=== PATIENT | female | born 1940 | race Caucasian/White ===

== ENCOUNTER 2022-09-22 19:48 | Observation (INO) ==
[2022-09-22] MEDS ORDERED: cefTRIAXone SODIUM 2,000 MG/70 ML BAG IV STA (20:14)
[2022-09-22] MEDS ORDERED: SODIUM CHLORIDE 0.9% 1000ML 1,000 ML IV ONE (20:16)
--- NOTE | 2022-09-22 20:17 | Emergency Department Note ---
Impression & Plan Acute Lyme disease, Sepsis, Elevated troponin ED Provider Note NAME: SHELBIE RONQUILLO AGE: 82 SEX: F : 1940 ARRIVES VIA: Walk-In INFORMANT: Patient ED PROVIDER(S): Kiran Taylor DO CHIEF COMPLAINT: fever HPI: Patient is an 82-year-old female who presents ER for fevers. Fevers have been present since Saturday with a high of 102. She has been getting these persistently and daily. She admits to shaking chills. No headache or change in vision. No chest pain or shortness of breath. No cough, congestion, or runny nose. Admits to an upset stomach and bilateral lower back pain. Denies any dysuria, urgency, or frequency. She was placed on Bactrim by her PCP following giving a urine. She was told today that she did not have a UTI and was sent in. She notes that she did have a little bit of a rash on her left and right arm but that has resolved. No other exacerbating or remitting factors. She admits that she chronically has redness of her right eyelid. PAST MEDICAL HISTORY:See Below PAST SURGICAL HISTORY:See Below FAMILY HISTORY:See Below SOCIAL HISTORY:See Below HOME MEDICATIONS:See Below ALLERGIES:See Below VITALS:See Below PHYSICAL EXAMINATION: GENERAL: Sitting up in bed, alert, well appearing, well nourished, no distress, non-toxic EYE EXAM: normal conjunctiva. Right eyelid with erythema. OROPHARYNX: no exudate, no erythema, lips, buccal mucosa, and tongue normal and mucous membranes are moist NECK: supple, no nuchal rigidity, no adenopathy, non-tender LUNGS: Clear to auscultation. Normal chest wall mechanics HEART: no murmurs, S1 normal and S2 normal ABDOMEN: abdomen soft, non-tender, normo-active bowel sounds, no masses, no rebound or guarding. BACK: Back is symmetrical on inspection and there is no deformity, no midline tenderness, no CVA tenderness. SKIN: Small amount of erythema over the left forearm with small mount of edema. UPPER EXTREMITIES: upper extremities are grossly normal. LOWER EXTREMITIES: No pitting edema. NEURO EXAM: Normal sensorium, cranial nerves II-XII grossly intact, normal speech, no gross weakness of arms, no gross weakness of legs. MEDICAL DECISION MAKING: Patient is an 82-year-old female who presents the ER for fevers for the past 4 to 5 days and associated with shaking chills/rigors. IV was established blood work was obtained. She is found to be borderline febrile and tachycardic. Labs show leukopenia 4.4. No significant anemia. BMP with mild hyponatremia 133. Mild transaminitis at 88 and 102. Troponin was elevated at 56. Pro-Cale was normal. UA was clean. Lyme IgG and IgM are positive. Patient was given 2 g of Rocephin. Updated bedside. Given IV fluids. Discussed with hospitalist admitted for further work-up. Triage Nursing notes reviewed. Limited review of prior medical records performed Vital Signs: reviewed and remarkable for tachy, htn Differential diagnosis: Differential diagnosis includes etiologies such as sepsis, UTI, pneumonia, metabolic, electrolyte abnormalities, cardiac sources, intracerebral event, toxicologic, neurological, as well as others were entertained. ER treatment provided: See below Diagnostics interpreted by me include EKG and cardiac monitoring as listed below: -Cardiac Monitoring: An order was placed for continuous cardiac monitoring. The monitor shows a rate of 101 with sinus rhythm. -ECG: Sinus rhythm rate 84 Left axis No PVCs QTc 439 -Laboratory studies:Interpreted by me as stated above in MDM and shown below. Imaging studies: Xrays: As interpreted by me: Portable AP upright 1 view the chest shows no pneumonia CTs show: CT abdomen pelvis showed no obvious obstruction per my read CT abdomen pelvis per radiology was unremarkable Consultation(s): Discussed with Dr. Aristides Fernandez for further evaluation management and treatment Procedures:none Critical Care: None Past Med/Surg History Social History Smoking Status: Never smoker Preferred Language: Peruvian Feels Safe at Home: Yes Allergies Allergies Allergy/AdvReac Type Severity Reaction Status Date / Time ampicillin Allergy Unknown Verified 09/22/22 21:55 celecoxib [From Celebrex] Allergy Unknown Verified 09/22/22 21:53 clindamycin Allergy Unknown Verified 09/22/22 21:56 erythromycin base Allergy Unknown Verified 09/22/22 21:55 Iodinated Contrast Media Allergy Anaphylaxis Verified 09/22/22 21:51 rofecoxib [From Vioxx] Allergy Unknown Verified 09/22/22 21:52 shellfish derived Allergy Anaphylaxis Verified 09/22/22 21:50 wine spirit Allergy Unknown Verified 09/22/22 21:52 epinephrine AdvReac ' WHOLE Verified 09/22/22 21:54 BODY QUIVERS' Home Meds Home Medications Medication Instructions Recorded Confirmed albuterol sulfate 90 mcg/actuation 2 puff inhalation Q6H PRN 09/22/22 09/22/22 aerosol inhaler Shortness Of Breath Or Wheezing aspirin 81 mg tablet,delayed 81 mg PO DAILY 09/22/22 09/22/22 release bimatoprost 0.01 % eye drops 1 drp OPR DAILY 09/22/22 09/22/22 (Lumigan) brimonidine 0.2 % eye drops 1 drp OPR BID 09/22/22 09/22/22 calcium carbonate 600 mg-vitamin 1 tab PO BID 09/22/22 09/22/22 D3 10 mcg (400 unit) tablet (Calcium 600 + D(3)) dorzolamide 2 % eye drops 1 drp OPR DIRECTED 09/22/22 09/22/22 simvastatin 20 mg tablet 20 mg PO DAILY 09/22/22 09/22/22 Results & Data (ED) Vital Signs Vital Signs - 24 hr 09/22/22 19:59 09/22/22 20:35 09/22/22 20:35 Temperature 37.6 C H 37.6 C H Temperature Source Oral Oral Pulse Rate 101 H 79 Pulse Rate [Right Finger] 84 Pulse Rate from SpO2 Sensor Pulse Rhythm Pulse Rhythm [Right Finger] Regular Pulse Strength [Right Finger] Normal Respiratory Rate 18 16 Respiratory Effort / Characteristics Non-Labored Spontaneous Non-Labored Spontaneous Respiratory Depth Normal Normal Respiratory Pattern Regular Regular Blood Pressure 169/83 H Blood Pressure [Right Arm] 123/66 Blood Pressure Mean 111 Blood Pressure Mean [Right Arm] 85 Blood Pressure Position [Right Arm] Lying Pulse Oximetry 97 98 Oxygen Delivery Method Room Air Room Air Sepsis Recent Fever Within 48 Hours Yes Sepsis New/Unexplained Change in Mental Status No Sepsis Action Taken by Nursing No Action Required 09/22/22 20:35 09/22/22 20:34 09/22/22 20:35 Temperature Temperature Source Pulse Rate 84 79 Pulse Rate [Right Finger] Pulse Rate from SpO2 Sensor 79 Pulse Rhythm Regular Pulse Rhythm [Right Finger] Pulse Strength [Right Finger] Respiratory Rate 16 12 Respiratory Effort / Characteristics Respiratory Depth Respiratory Pattern Blood Pressure 123/66 Blood Pressure [Right Arm] Blood Pressure Mean 89 Blood Pressure Mean [Right Arm] Blood Pressure Position [Right Arm] Pulse Oximetry 98 96 Oxygen Delivery Method Room Air Sepsis Recent Fever Within 48 Hours Sepsis New/Unexplained Change in Mental Status Sepsis Action Taken by Nursing 09/22/22 20:40 09/22/22 20:50 09/22/22 21:00 Temperature Temperature Source Pulse Rate 79 78 Pulse Rate [Right Finger] Pulse Rate from SpO2 Sensor 78 78 Pulse Rhythm Pulse Rhythm [Right Finger] Pulse Strength [Right Finger] Respiratory Rate 18 19 Respiratory Effort / Characteristics Respiratory Depth Respiratory Pattern Blood Pressure 131/69 Blood Pressure [Right Arm] Blood Pressure Mean 75 Blood Pressure Mean [Right Arm] Blood Pressure Position [Right Arm] Pulse Oximetry 97 97 Oxygen Delivery Method Sepsis Recent Fever Within 48 Hours Sepsis New/Unexplained Change in Mental Status Sepsis Action Taken by Nursing 09/22/22 21:00 09/22/22 21:10 09/22/22 21:20 Temperature Temperature Source Pulse Rate 75 79 75 Pulse Rate [Right Finger] Pulse Rate from SpO2 Sensor 72 80 75 Pulse Rhythm Pulse Rhythm [Right Finger] Pulse Strength [Right Finger] Respiratory Rate 17 17 17 Respiratory Effort / Characteristics Respiratory Depth Respiratory Pattern Blood Pressure Blood Pressure [Right Arm] Blood Pressure Mean Blood Pressure Mean [Right Arm] Blood Pressure Position [Right Arm] Pulse Oximetry 97 97 97 Oxygen Delivery Method Sepsis Recent Fever Within 48 Hours Sepsis New/Unexplained Change in Mental Status Sepsis Action Taken by Nursing 09/22/22 21:30 09/22/22 21:30 09/22/22 21:40 Temperature Temperature Source Pulse Rate 79 77 Pulse Rate [Right Finger] Pulse Rate from SpO2 Sensor 78 76 Pulse Rhythm Pulse Rhythm [Right Finger] Pulse Strength [Right Finger] Respiratory Rate 20 23 Respiratory Effort / Characteristics Respiratory Depth Respiratory Pattern Blood Pressure 148/105 H Blood Pressure [Right Arm] Blood Pressure Mean 111 Blood Pressure Mean [Right Arm] Blood Pressure Position [Right Arm] Pulse Oximetry 98 99 Oxygen Delivery Method Sepsis Recent Fever Within 48 Hours Sepsis New/Unexplained Change in Mental Status Sepsis Action Taken by Nursing 09/22/22 21:55 09/22/22 22:00 09/22/22 22:10 Temperature Temperature Source Pulse Rate 80 77 83 Pulse Rate [Right Finger] Pulse Rate from SpO2 Sensor Pulse Rhythm Pulse Rhythm [Right Finger] Pulse Strength [Right Finger] Respiratory Rate 17 17 15 Respiratory Effort / Characteristics Respiratory Depth Respiratory Pattern Blood Pressure Blood Pressure [Right Arm] Blood Pressure Mean Blood Pressure Mean [Right Arm] Blood Pressure Position [Right Arm] Pulse Oximetry Oxygen Delivery Method Sepsis Recent Fever Within 48 Hours Sepsis New/Unexplained Change in Mental Status Sepsis Action Taken by Nursing 09/22/22 22:20 09/22/22 22:30 09/22/22 22:30 Temperature Temperature Source Pulse Rate 83 81 Pulse Rate [Right Finger] Pulse Rate from SpO2 Sensor 83 81 Pulse Rhythm Pulse Rhythm [Right Finger] Pulse Strength [Right Finger] Respiratory Rate 19 18 Respiratory Effort / Characteristics Respiratory Depth Respiratory Pattern Blood Pressure 134/75 Blood Pressure [Right Arm] Blood Pressure Mean 116 Blood Pressure Mean [Right Arm] Blood Pressure Position [Right Arm] Pulse Oximetry 98 98 Oxygen Delivery Method Sepsis Recent Fever Within 48 Hours Sepsis New/Unexplained Change in Mental Status Sepsis Action Taken by Nursing 09/22/22 22:40 09/22/22 22:50 09/22/22 23:00 Temperature Temperature Source Pulse Rate 81 83 Pulse Rate [Right Finger] Pulse Rate from SpO2 Sensor 81 84 Pulse Rhythm Pulse Rhythm [Right Finger] Pulse Strength [Right Finger] Respiratory Rate 12 23 Respiratory Effort / Characteristics Respiratory Depth Respiratory Pattern Blood Pressure 148/110 H Blood Pressure [Right Arm] Blood Pressure Mean 124 Blood Pressure Mean [Right Arm] Blood Pressure Position [Right Arm] Pulse Oximetry 98 98 Oxygen Delivery Method Sepsis Recent Fever Within 48 Hours Sepsis New/Unexplained Change in Mental Status Sepsis Action Taken by Nursing 09/22/22 23:00 09/22/22 23:10 09/22/22 23:22 Temperature Temperature Source Pulse Rate 86 82 87 Pulse Rate [Right Finger] Pulse Rate from SpO2 Sensor 86 82 86 Pulse Rhythm Pulse Rhythm [Right Finger] Pulse Strength [Right Finger] Respiratory Rate 17 14 20 Respiratory Effort / Characteristics Respiratory Depth Respiratory Pattern Blood Pressure Blood Pressure [Right Arm] Blood Pressure Mean Blood Pressure Mean [Right Arm] Blood Pressure Position [Right Arm] Pulse Oximetry 97 96 98 Oxygen Delivery Method Sepsis Recent Fever Within 48 Hours Sepsis New/Unexplained Change in Mental Status Sepsis Action Taken by Nursing Laboratory Data 09/22/22 20:45 09/22/22 20:45 Lab Results 09/22/22 09/22/22 09/22/22 Range/Units 20:45 20:45 20:45 WBC 4.49 L (4.8-10.8) K/ul RBC 3.96 L (4.20-5.40) M/uL Hgb 12.2 (12.0-16.0) g/dl POC Hgb (12.0-16.0) g/dl Hct 34.5 L (37.0-47.0) % POC Hct (37-47) % MCV 87.1 (80.0-100.0) fL MCH 30.8 (25.0-34.0) pg MCHC 35.4 (32.0-36.0) g/dL RDW Std Deviation 40.2 (36.4-46.3) fL RDW Coeff of Kieran 12.6 (11.5-14.5) % Plt Count 151 (130-400) K/uL MPV 9.8 (9.4-12.4) fL Immature Gran % (Auto) 0.4 % Neut % (Auto) 59.7 % Lymph % (Auto) 25.2 % [place] % (Auto) 14.3 % Eos % (Auto) 0.2 % Baso % (Auto) 0.2 % Neut # (Auto) 2.68 (1.40-6.50) K/uL Lymph # (Auto) 1.13 L (1.2-3.4) K/uL [place] # (Auto) 0.64 H (0.11-0.59) K/uL Eos # (Auto) 0.01 (0-0.50) K/uL Baso # (Auto) 0.01 (0-0.2) K/uL Immature Gran # (Auto) 0.02 (0.01-0.20) K/uL PT 10.9 (9.0-12.0) Seconds INR 1.0 (0.9-1.1) APTT (21.0-31.0) Seconds PTT Ratio POC Sodium (135-144) mmol/L Sodium 133 L (136-145) mmol/L POC Potassium (3.3-5.0) mmol/L Potassium 3.5 (3.5-5.1) mmol/L POC Chloride (101-112) mmol/L Chloride 104 (98-107) mmol/L Carbon Dioxide 22 (21-32) mmol/L POC Total CO2 (24-31) mmol/L Anion Gap 7 (3-11) POC Anion Gap (16-25) mmol/L POC BUN (7-18) mg/dl BUN 8 (6-23) mg/dl Creatinine 0.60 (0.6-1.2) mg/dl POC Creatinine (0.6-1.3) mg/dl Est Cr Clr Drug Dosing Not Reportable Est GFR ( Amer) 97.0 ml/min Est GFR (Non-Af Amer) 83.7 ml/min BUN/Creatinine Ratio 13.3 (10-20) Glucose 105 H (70-99(Fasting)) mg/dl POC Glucose (other) (70-99) mg/dl Lactate (0.4-2.0) mmol/L Calcium 8.8 (8.6-10.3) mg/dl POC Ioniz Calcium Karishma (1.12-1.32) mmol/l Magnesium 2.1 (1.7-2.4) mg/dl Total Bilirubin 0.5 (0.2-1.0) mg/dl Direct Bilirubin 0.1 (0-0.2) mg/dl AST 88 H (13-39) U/L ALT 102 H (7-52) U/L Alkaline Phosphatase 133 H (34-104) U/L Troponin I High Sens 56.5 H* (0-14) pg/ml Total Protein 6.6 (6.0-8.3) gm/dl Albumin 3.8 (3.4-5.0) gm/dl Procalcitonin (0-0.5) ng/ml Urine Color Urine Appearance (Clear) Urine pH (4.5-7.5) Ur Specific Sawyer (1.000-1.030) Urine Protein (Negative) Urine Glucose (UA) (Negative) Urine Ketones (Negative) Urine Blood (Negative) Urine Nitrite (Negative) Urine Bilirubin (Negative) Urine Urobilinogen (Negative) Ur Leukocyte Esterase (Negative) Urine WBC (Auto) (0-5) /hpf Urine RBC (Auto) (0-4) /hpf U Hyaline Cast (Auto) (0-5) /lpf U Epithel Cells (Auto) (0-5) /lpf Urine Bacteria (Auto) (Negative) Lyme Disease IgG Ab (Negative) Lyme Disease IgM Ab (Negative) SARS-CoV-2 (PCR) (Negative) Influenza Type A (PCR) (Neg) Influenza Type B (PCR) (Neg) RSV (RT-PCR) (Neg) 09/22/22 09/22/22 09/22/22 Range/Units 20:45 20:45 20:45 WBC (4.8-10.8) K/ul RBC (4.20-5.40) M/uL Hgb (12.0-16.0) g/dl POC Hgb (12.0-16.0) g/dl Hct (37.0-47.0) % POC Hct (37-47) % MCV (80.0-100.0) fL MCH (25.0-34.0) pg MCHC (32.0-36.0) g/dL RDW Std Deviation (36.4-46.3) fL RDW Coeff of Kieran (11.5-14.5) % Plt Count (130-400) K/uL MPV (9.4-12.4) fL Immature Gran % (Auto) % Neut % (Auto) % Lymph % (Auto) % [place] % (Auto) % Eos % (Auto) % Baso % (Auto) % Neut # (Auto) (1.40-6.50) K/uL Lymph # (Auto) (1.2-3.4) K/uL [place] # (Auto) (0.11-0.59) K/uL Eos # (Auto) (0-0.50) K/uL Baso # (Auto) (0-0.2) K/uL Immature Gran # (Auto) (0.01-0.20) K/uL PT (9.0-12.0) Seconds INR (0.9-1.1) APTT (21.0-31.0) Seconds PTT Ratio POC Sodium (135-144) mmol/L Sodium (136-145) mmol/L POC Potassium (3.3-5.0) mmol/L Potassium (3.5-5.1) mmol/L POC Chloride (101-112) mmol/L Chloride (98-107) mmol/L Carbon Dioxide (21-32) mmol/L POC Total CO2 (24-31) mmol/L Anion Gap (3-11) POC Anion Gap (16-25) mmol/L POC BUN (7-18) mg/dl BUN (6-23) mg/dl Creatinine (0.6-1.2) mg/dl POC Creatinine (0.6-1.3) mg/dl Est Cr Clr Drug Dosing Est GFR ( Amer) ml/min Est GFR (Non-Af Amer) ml/min BUN/Creatinine Ratio (10-20) Glucose (70-99(Fasting)) mg/dl POC Glucose (other) (70-99) mg/dl Lactate 0.8 (0.4-2.0) mmol/L Calcium (8.6-10.3) mg/dl POC Ioniz Calcium Karishma (1.12-1.32) mmol/l Magnesium (1.7-2.4) mg/dl Total Bilirubin (0.2-1.0) mg/dl Direct Bilirubin (0-0.2) mg/dl AST (13-39) U/L ALT (7-52) U/L Alkaline Phosphatase (34-104) U/L Troponin I High Sens (0-14) pg/ml Total Protein (6.0-8.3) gm/dl Albumin (3.4-5.0) gm/dl Procalcitonin 0.30 (0-0.5) ng/ml Urine Color Yellow Urine Appearance Clear (Clear) Urine pH 7.5 (4.5-7.5) Ur Specific Sawyer 1.007 (1.000-1.030) Urine Protein Negative (Negative) Urine Glucose (UA) Negative (Negative) Urine Ketones Negative (Negative) Urine Blood Trace H (Negative) Urine Nitrite Negative (Negative) Urine Bilirubin Negative (Negative) Urine Urobilinogen Negative (Negative) Ur Leukocyte Esterase Negative (Negative) Urine WBC (Auto) 0 (0-5) /hpf Urine RBC (Auto) 0-4 (0-4) /hpf U Hyaline Cast (Auto) 0 (0-5) /lpf U Epithel Cells (Auto) 5-10 H (0-5) /lpf Urine Bacteria (Auto) Negative (Negative) Lyme Disease IgG Ab Positive A (Negative) Lyme Disease IgM Ab Positive A (Negative) SARS-CoV-2 (PCR) (Negative) Influenza Type A (PCR) (Neg) Influenza Type B (PCR) (Neg) RSV (RT-PCR) (Neg) 09/22/22 09/22/22 09/22/22 Range/Units 20:53 20:57 21:10 WBC (4.8-10.8) K/ul RBC (4.20-5.40) M/uL Hgb (12.0-16.0) g/dl POC Hgb 12.2 (12.0-16.0) g/dl Hct (37.0-47.0) % POC Hct 36 L (37-47) % MCV (80.0-100.0) fL MCH (25.0-34.0) pg MCHC (32.0-36.0) g/dL RDW Std Deviation (36.4-46.3) fL RDW Coeff of Kieran (11.5-14.5) % Plt Count (130-400) K/uL MPV (9.4-12.4) fL Immature Gran % (Auto) % Neut % (Auto) % Lymph % (Auto) % [place] % (Auto) % Eos % (Auto) % Baso % (Auto) % Neut # (Auto) (1.40-6.50) K/uL Lymph # (Auto) (1.2-3.4) K/uL [place] # (Auto) (0.11-0.59) K/uL Eos # (Auto) (0-0.50) K/uL Baso # (Auto) (0-0.2) K/uL Immature Gran # (Auto) (0.01-0.20) K/uL PT (9.0-12.0) Seconds INR (0.9-1.1) APTT 29.0 (21.0-31.0) Seconds PTT Ratio 1.0 POC Sodium 134 L (135-144) mmol/L Sodium (136-145) mmol/L POC Potassium 3.5 (3.3-5.0) mmol/L Potassium (3.5-5.1) mmol/L POC Chloride 103 (101-112) mmol/L Chloride (98-107) mmol/L Carbon Dioxide (21-32) mmol/L POC Total CO2 19 L (24-31) mmol/L Anion Gap (3-11) POC Anion Gap 16.0 (16-25) mmol/L POC BUN 6 L (7-18) mg/dl BUN (6-23) mg/dl Creatinine (0.6-1.2) mg/dl POC Creatinine 0.6 (0.6-1.3) mg/dl Est Cr Clr Drug Dosing Est GFR ( Amer) ml/min Est GFR (Non-Af Amer) ml/min BUN/Creatinine Ratio (10-20) Glucose (70-99(Fasting)) mg/dl POC Glucose (other) 108 H (70-99) mg/dl Lactate (0.4-2.0) mmol/L Calcium (8.6-10.3) mg/dl POC Ioniz Calcium Karishma 1.18 (1.12-1.32) mmol/l Magnesium (1.7-2.4) mg/dl Total Bilirubin (0.2-1.0) mg/dl Direct Bilirubin (0-0.2) mg/dl AST (13-39) U/L ALT (7-52) U/L Alkaline Phosphatase (34-104) U/L Troponin I High Sens (0-14) pg/ml Total Protein (6.0-8.3) gm/dl Albumin (3.4-5.0) gm/dl Procalcitonin (0-0.5) ng/ml Urine Color Urine Appearance (Clear) Urine pH (4.5-7.5) Ur Specific Sawyer (1.000-1.030) Urine Protein (Negative) Urine Glucose (UA) (Negative) Urine Ketones (Negative) Urine Blood (Negative) Urine Nitrite (Negative) Urine Bilirubin (Negative) Urine Urobilinogen (Negative) Ur Leukocyte Esterase (Negative) Urine WBC (Auto) (0-5) /hpf Urine RBC (Auto) (0-4) /hpf U Hyaline Cast (Auto) (0-5) /lpf U Epithel Cells (Auto) (0-5) /lpf Urine Bacteria (Auto) (Negative) Lyme Disease IgG Ab (Negative) Lyme Disease IgM Ab (Negative) SARS-CoV-2 (PCR) NEGATIVE (Negative) Influenza Type A (PCR) Negative (Neg) Influenza Type B (PCR) Negative (Neg) RSV (RT-PCR) Negative (Neg) Administered Medications Doxycycline Hyclate 100 mg/ (Dextrose) 110 mls @ 50 mls/hr IV NOW STA Stop: 09/23/22 01:06 Last Admin: 09/22/22 23:25 Dose: 50 mls/hr Documented By: CURYL Sodium Chloride (Nss 1000ml) 1,000 mls @ 75 mls/hr IV .[id number] STA Stop: 09/23/22 12:17 Last Admin: 09/22/22 23:25 Dose: 75 mls/hr Documented By: CURLY Discontinued Medications Acetaminophen (Acetaminophen 325 Mg Tab) 650 mg PO NOW STA Stop: 09/22/22 22:57 Last Admin: 09/22/22 23:24 Dose: 650 mg Documented By: CURLY Ceftriaxone Sodium (Rocephin) 2,000 mg in 70 mls @ 140 mls/hr IV NOW STA Stop: 09/22/22 20:43 Last Infusion: 09/22/22 21:45 Dose: 0 mls/hr Documented By: AUTOMOTIVE GENERAL MANAGER Admin: 09/22/22 21:15 Dose: 140 mls/hr Documented By: AUTOMOTIVE GENERAL MANAGER Sodium Chloride (Nss 1000ml) 1,000 mls @ 999 mls/hr IV .[id number] ONE Stop: 09/22/22 21:16 Last Infusion: 09/22/22 23:40 Dose: 0 mls/hr Documented By: Admin: 09/22/22 21:16 Dose: 999 mls/hr Documented By: ALEXIS Imaging Data Radiologist's Impression: Abdomen/Pelvis CT 09/22/22 20:14 Exam(s): CT ABDOMEN + PELVIS Without Contrast EXAM: CT Abdomen and Pelvis Without Intravenous Contrast CLINICAL HISTORY: Reason for exam: sepsis w/ back pain. TECHNIQUE: Axial computed tomography images of the abdomen and pelvis without intravenous contrast. Automated exposure control was utilized for the study. A dose lowering technique was utilized adhering to the principles of ALARA. COMPARISON: No relevant prior studies available. FINDINGS: Lung bases: Clear lung bases. Heart: Small pericardial effusion. ABDOMEN: Liver: Unremarkable. Gallbladder and bile ducts: Cholelithiasis without cholecystitis or biliary dilatation. Pancreas: Unremarkable. No ductal dilation. Spleen: Unremarkable. No splenomegaly. Adrenals: Small calcification right adrenal gland, post-inflammatory or post-hemorrhagic. Left adrenal gland is normal. Kidneys and ureters: Unremarkable. No hydronephrosis. No radiopaque stones. Stomach and bowel: No bowel obstruction. Sigmoid diverticulosis without diverticulitis. PELVIS: Appendix: Normal appendix. Bladder: Unremarkable. No stones. Reproductive: Unremarkable as visualized. ABDOMEN and PELVIS: Intraperitoneal space: Trace free pelvic fluid. No free air. Bones/joints: Osteopenia. Degenerative changes in the lumbar spine. No acute fracture or dislocation. Soft tissues: Unremarkable. Vasculature: Minor atherosclerosis. No aortic aneurysm. Lymph nodes: Unremarkable. No adenopathy. IMPRESSION: No acute findings in the abdomen or pelvis. Electronically signed by: Rodríguez Jennings M.D. 09/23/22 00:00 AM Discharge Plan Visit Data Chief Complaint: Illness Stated Complaint: HIVES, BLOATING, BACK PAIN ED Provider: Kiran Taylor Discharge Problem: Acute Lyme disease, Sepsis, Elevated troponin Forms Stand Alone Forms: My [facility] [place] [employer] Prescriptions Prescriptions: No Action calcium carbonate-vitamin D3 [Calcium 600 + D(3)] 600 mg-10 mcg (400 unit) Tablet 1 tab PO BID aspirin [Aspir-Low] 81 mg Tablet,Delayed Release (Dr/Ec) 81 mg PO DAILY simvastatin 20 mg Tablet 20 mg PO DAILY brimonidine [Alphagan] 0.2 % Drops 1 drp OPR BID Lumigan 0.01 % Drops 1 drp OPR DAILY dorzolamide 2 % Drops 1 drp OPR DIRECTED albuterol sulfate 90 mcg/actuation Hfa Aerosol Inhaler 2 puff INHALATION Q6H PRN (Reason: Shortness Of Breath Or Wheezing) Referrals Referrals: PCP,NO [Physician] -
[2022-09-22 21:06] LABS: iSTAT Creatinine 0.6 mg/dl (0.6-1.3); iSTAT Hemoglobin 12.2 g/dl (12.0-16.0); iSTAT Ionized Calcium 1.18 mmol/l (1.12-1.32); iSTAT Potassium 3.5 mmol/L (3.3-5.0)
[2022-09-22 21:12] LABS: Appearance Urine Clear (Clear); Bacteria Urine Automated Negative (Negative); Bilirubin Urine Negative (Negative); Blood Urine Trace (Negative); Cast Urine Automated 0 /lpf (0-5); Color Urine Yellow; Glucose Urine UA Negative (Negative); Ketones Urine Negative (Negative); Leukocyte Esterase Urine Negative (Negative); Nitrite Urine Negative (Negative); Protein Urine Negative (Negative); RBC Urine Automated 0-4 /hpf (0-4); Specific Gravity Urine 1.007 (1.000-1.030); Urobilinogen Urine Negative (Negative); WBC Urine Automated 0 /hpf (0-5); pH Urine 7.5 (4.5-7.5)
[2022-09-22 21:20] LABS: Basophils # (auto) 0.01 K/uL (0-0.2); Basophils % (auto) 0.2 %; Eosinophils # (auto) 0.01 K/uL (0-0.50); Eosinophils % (auto) 0.2 %; Hematocrit (blood only) 34.5 % (37.0-47.0); Hemoglobin 12.2 g/dl (12.0-16.0); Immature Granulocytes # (auto) 0.02 K/uL (0.01-0.20); Immature Granulocytes % (auto) 0.4 %; Lymphocytes # (auto) 1.13 K/uL (1.2-3.4); Lymphocytes % (auto) 25.2 %; Mean Corpuscular Hemoglobin 30.8 pg (25.0-34.0); Mean Corpuscular Hgb Conc 35.4 g/dL (32.0-36.0); Mean Corpuscular Volume 87.1 fL (80.0-100.0); Mean Platelet Volume 9.8 fL (9.4-12.4); Monocytes # (auto) 0.64 K/uL (0.11-0.59); Monocytes % (auto) 14.3 %; Neutrophils # (auto) 2.68 K/uL (1.40-6.50); Neutrophils % (auto) 59.7 %; Platelet Count 151 K/uL (130-400); RDW Coefficient of Variation 12.6 % (11.5-14.5); RDW Standard Deviation 40.2 fL (36.4-46.3); Red Blood Count 3.96 M/uL (4.20-5.40); White Blood Count 4.49 K/ul (4.8-10.8)
[2022-09-22 21:25] LABS: Alanine Aminotransferase 102 U/L (7-52); Albumin Level 3.8 gm/dl (3.4-5.0); Alkaline Phosphatase 133 U/L (34-104); Anion Gap 7 (3-11); Aspartate Aminotransferase 88 U/L (13-39); BUN Creatinine Ratio 13.3 (10-20); Bilirubin Direct 0.1 mg/dl (0-0.2); Bilirubin,Total 0.5 mg/dl (0.2-1.0); Blood Urea Nitrogen 8 mg/dl (6-23); Calcium 8.8 mg/dl (8.6-10.3); Carbon Dioxide 22 mmol/L (21-32); Chloride 104 mmol/L (98-107); Est GFR (Non-African American) 83.7 ml/min; Glucose 105 mg/dl (70-99(Fasting)); Magnesium 2.1 mg/dl (1.7-2.4); Potassium 3.5 mmol/L (3.5-5.1); Sodium 133 mmol/L (136-145); Total Protein 6.6 gm/dl (6.0-8.3)
[2022-09-22 21:33] LABS: Prothrombin Time 10.9 Seconds (9.0-12.0)
[2022-09-22 21:43] LABS: Troponin I High Sensitivity 56.5 pg/ml (0-14)
[2022-09-22 21:49] LABS: Influenza A virus by PCR Negative (Neg); Influenza B virus by PCR Negative (Neg); RSV by PCR Negative (Neg); SARS CoV2 RNA(COVID-19) Ceph NEGATIVE (Negative)
[2022-09-22 22:30] LABS: Lyme Ab IgG w/WB Rflx Positive (Negative); Lyme Ab IgM w/WB Rflx Positive (Negative)
[2022-09-22] MEDS ORDERED: DOXYCYCLINE HYCLATE 100 MG in DEXTROSE 5% 100 ML IV STA (22:55)
[2022-09-22] MEDS ORDERED: ACETAMINOPHEN 325 MG TAB PO STA (22:56)
[2022-09-22] MEDS ORDERED: SODIUM CHLORIDE 0.9% 1000ML 1,000 ML IV STA (22:58)
--- NOTE | 2022-09-23 | CT Scan Report ---
Exam(s): CT ABDOMEN + PELVIS Without Contrast EXAM: CT Abdomen and Pelvis Without Intravenous Contrast CLINICAL HISTORY: Reason for exam: sepsis w/ back pain. TECHNIQUE: Axial computed tomography images of the abdomen and pelvis without intravenous contrast. Automated exposure control was utilized for the study. A dose lowering technique was utilized adhering to the principles of ALARA. COMPARISON: No relevant prior studies available. FINDINGS: Lung bases: Clear lung bases. Heart: Small pericardial effusion. ABDOMEN: Liver: Unremarkable. Gallbladder and bile ducts: Cholelithiasis without cholecystitis or biliary dilatation. Pancreas: Unremarkable. No ductal dilation. Spleen: Unremarkable. No splenomegaly. Adrenals: Small calcification right adrenal gland, post-inflammatory or post-hemorrhagic. Left adrenal gland is normal. Kidneys and ureters: Unremarkable. No hydronephrosis. No radiopaque stones. Stomach and bowel: No bowel obstruction. Sigmoid diverticulosis without diverticulitis. PELVIS: Appendix: Normal appendix. Bladder: Unremarkable. No stones. Reproductive: Unremarkable as visualized. ABDOMEN and PELVIS: Intraperitoneal space: Trace free pelvic fluid. No free air. Bones/joints: Osteopenia. Degenerative changes in the lumbar spine. No acute fracture or dislocation. Soft tissues: Unremarkable. Vasculature: Minor atherosclerosis. No aortic aneurysm. Lymph nodes: Unremarkable. No adenopathy. IMPRESSION: No acute findings in the abdomen or pelvis. Electronically signed by: Rodríguez Jennings M.D. 09/23/22 00:00 AM
--- NOTE | 2022-09-23 00:05 | History & Physical Report ---
Date of Service September 23, 2022 Assessment & Plan (1) Sepsis: Plan: Secondary to tickborne infection Abnormal LFTs secondary to above Hypertensive urgency secondary to illness Troponin elevation secondary to above hyperlipidemia, on statin Rx Medical telemetry CS, Doxycycline Follow troponin, TTE for progression DVT prophylaxis per Lovenox subcu Full code Text document was generated using [employer] voice recognition software. It may contain grammatical or spelling errors. Kindly contact undersigned for clarification of any documentation item in question. History of Present Illness Chief Complaint: Fever, chills Primary Care Provider: Tyler Walton History obtained from patient and records. Medical history significant for hyperlipidemia, glaucoma. 3 days history of fever, chills, generalized weakness. Upset stomach without diarrhea symptoms. No chest pain, no SOB, no cough symptoms. Possible tick exposure due to residence although patient has no recollection of recent tick bites. Patient seen at PCPs office. Patient started on Bactrim for possible UTI. No improvement despite first doses of antibiotic. Patient brought to ER by . IV ceftriaxone administered at the ER for possible tickborne infection. Initial SBP noted to be 160s. Medical History as above Surgical History : Carpal tunnel surgery Family History : Heart disease Personal/Social history : Non-smoker, no EtOH intake, lives with Allergies Allergy/AdvReac Type Severity Reaction Status Date / Time ampicillin Allergy Unknown Verified 09/22/22 21:55 celecoxib [From Celebrex] Allergy Unknown Verified 09/22/22 21:53 clindamycin Allergy Unknown Verified 09/22/22 21:56 erythromycin base Allergy Unknown Verified 09/22/22 21:55 Iodinated Contrast Media Allergy Anaphylaxis Verified 09/22/22 21:51 rofecoxib [From Vioxx] Allergy Unknown Verified 09/22/22 21:52 shellfish derived Allergy Anaphylaxis Verified 09/22/22 21:50 wine spirit Allergy Unknown Verified 09/22/22 21:52 epinephrine AdvReac ' WHOLE Verified 09/22/22 21:54 BODY [facility]ERS' Home Medications Medication Instructions Recorded Confirmed Type albuterol sulfate 90 mcg/actuation 2 puff inhalation Q6H PRN 09/22/22 09/22/22 History aerosol inhaler Shortness Of Breath Or Wheezing aspirin 81 mg tablet,delayed 81 mg PO DAILY 09/22/22 09/22/22 History release bimatoprost 0.01 % eye drops 1 drp OPR DAILY 09/22/22 09/22/22 History (Lumigan) brimonidine 0.2 % eye drops 1 drp OPR BID 09/22/22 09/22/22 History calcium carbonate 600 mg-vitamin 1 tab PO BID 09/22/22 09/22/22 History D3 10 mcg (400 unit) tablet (Calcium 600 + D(3)) dorzolamide 2 % eye drops 1 drp OPR DIRECTED 09/22/22 09/22/22 History simvastatin 20 mg tablet 20 mg PO DAILY 09/22/22 09/22/22 History Past Med/Surg History Social History Smoking Status: Never smoker Second Hand Exposure: No; Hx Alcohol Use: Yes Alcohol type: beer Hx Substance Use: No Preferred Language: Croatian Communication Ability: Effective Gift Shop Clerk Required: No Beliefs That Will Affect Care: None Current Living Situation: Spouse Feels Safe at Home: Yes Review of Systems Review of Systems: As per HPI, all other systems reviewed and negative Physical Exam Physical Exam: GENERAL: Comfortable, pleasant, looks younger than stated age, no respiratory distress SKIN: Normal color, warm HEENT: [place] palpebral conjunctivae, chronic right ptosis chronic right upper lid erythema, dry buccal mucosa NECK : Supple, no tenderness CHEST : CTA, no tenderness HEART : RRR, no obvious murmurs ABDOMEN: Some distention, nontender EXTREMITIES : No LE swelling/tenderness, no other conspicuous deformities noted NEUROLOGIC : Coherent, no facial asymmetry, no other gross focality Results & Data Results & Data Vital Signs (Past 12 Hours) Vital Signs Temp Pulse Pulse Resp BP BP Pulse Ox 09/22/22 23:22 87 20 98 09/22/22 23:10 82 14 96 09/22/22 23:00 86 17 97 09/22/22 23:00 148/110 H 09/22/22 22:50 83 23 98 09/22/22 22:40 81 12 98 09/22/22 22:30 81 18 98 09/22/22 22:30 134/75 09/22/22 22:20 83 19 98 09/22/22 22:10 83 15 09/22/22 22:00 77 17 09/22/22 21:55 80 17 09/22/22 21:40 77 23 99 09/22/22 21:30 79 20 98 09/22/22 21:30 148/105 H 09/22/22 21:20 75 17 97 09/22/22 21:10 79 17 97 09/22/22 21:00 75 17 97 09/22/22 21:00 131/69 09/22/22 20:50 78 19 97 09/22/22 20:40 79 18 97 09/22/22 20:35 79 12 96 09/22/22 20:34 123/66 09/22/22 20:35 84 16 98 09/22/22 20:35 37.6 C H 84 16 123/66 98 09/22/22 20:35 79 09/22/22 19:59 37.6 C H 101 H 18 169/83 H 97 O2 Del Method 09/22/22 23:22 09/22/22 23:10 09/22/22 23:00 09/22/22 23:00 09/22/22 22:50 09/22/22 22:40 09/22/22 22:30 09/22/22 22:30 09/22/22 22:20 09/22/22 22:10 09/22/22 22:00 09/22/22 21:55 09/22/22 21:40 09/22/22 21:30 09/22/22 21:30 09/22/22 21:20 09/22/22 21:10 09/22/22 21:00 09/22/22 21:00 09/22/22 20:50 09/22/22 20:40 09/22/22 20:35 09/22/22 20:34 09/22/22 20:35 Room Air 09/22/22 20:35 Room Air 09/22/22 20:35 09/22/22 19:59 Room Air Laboratory Results Laboratory Results WBC 4.49 K/ul (4.8-10.8) L 09/22/22 20:45 RBC 3.96 M/uL (4.20-5.40) L 09/22/22 20:45 Hgb 12.2 g/dl (12.0-16.0) 09/22/22 20:45 POC Hgb 12.2 g/dl (12.0-16.0) 09/22/22 20:53 Hct 34.5 % (37.0-47.0) L 09/22/22 20:45 POC Hct 36 % (37-47) L 09/22/22 20:53 MCV 87.1 fL (80.0-100.0) 09/22/22 20:45 MCH 30.8 pg (25.0-34.0) 09/22/22 20:45 MCHC 35.4 g/dL (32.0-36.0) 09/22/22 20:45 RDW Std Deviation 40.2 fL (36.4-46.3) 09/22/22 20:45 RDW Coeff of Kieran 12.6 % (11.5-14.5) 09/22/22 20:45 Plt Count 151 K/uL (130-400) 09/22/22 20:45 MPV 9.8 fL (9.4-12.4) 09/22/22 20:45 Immature Gran % (Auto) 0.4 % 09/22/22 20:45 Neut % (Auto) 59.7 % 09/22/22 20:45 Lymph % (Auto) 25.2 % 09/22/22 20:45 Coal % (Auto) 14.3 % 09/22/22 20:45 Eos % (Auto) 0.2 % 09/22/22 20:45 Baso % (Auto) 0.2 % 09/22/22 20:45 Neut # (Auto) 2.68 K/uL (1.40-6.50) 09/22/22 20:45 Lymph # (Auto) 1.13 K/uL (1.2-3.4) L 09/22/22 20:45 Coal # (Auto) 0.64 K/uL (0.11-0.59) H 09/22/22 20:45 Eos # (Auto) 0.01 K/uL (0-0.50) 09/22/22 20:45 Baso # (Auto) 0.01 K/uL (0-0.2) 09/22/22 20:45 Immature Gran # (Auto) 0.02 K/uL (0.01-0.20) 09/22/22 20:45 PT 10.9 Seconds (9.0-12.0) 09/22/22 20:45 INR 1.0 (0.9-1.1) 09/22/22 20:45 APTT 29.0 Seconds (21.0-31.0) 09/22/22 20:57 PTT Ratio 1.0 09/22/22 20:57 POC Sodium 134 mmol/L (135-144) L 09/22/22 20:53 Sodium 133 mmol/L (136-145) L 09/22/22 20:45 POC Potassium 3.5 mmol/L (3.3-5.0) 09/22/22 20:53 Potassium 3.5 mmol/L (3.5-5.1) 09/22/22 20:45 POC Chloride 103 mmol/L (101-112) 09/22/22 20:53 Chloride 104 mmol/L (98-107) 09/22/22 20:45 Carbon Dioxide 22 mmol/L (21-32) 09/22/22 20:45 POC Total CO2 19 mmol/L (24-31) L 09/22/22 20:53 Anion Gap 7 (3-11) 09/22/22 20:45 POC Anion Gap 16.0 mmol/L (16-25) 09/22/22 20:53 POC BUN 6 mg/dl (7-18) L 09/22/22 20:53 BUN 8 mg/dl (6-23) 09/22/22 20:45 Creatinine 0.60 mg/dl (0.6-1.2) 09/22/22 20:45 POC Creatinine 0.6 mg/dl (0.6-1.3) 09/22/22 20:53 Est Cr Clr Drug Dosing Not Reportable 09/22/22 20:45 Est GFR ( Amer) 97.0 ml/min 09/22/22 20:45 Est GFR (Non-Af Amer) 83.7 ml/min 09/22/22 20:45 BUN/Creatinine Ratio 13.3 (10-20) 09/22/22 20:45 Glucose 105 mg/dl (70-99(Fasting)) H 09/22/22 20:45 POC Glucose (other) 108 mg/dl (70-99) H 09/22/22 20:53 Lactate 0.8 mmol/L (0.4-2.0) 09/22/22 20:45 Calcium 8.8 mg/dl (8.6-10.3) 09/22/22 20:45 POC Ioniz Calcium Karishma 1.18 mmol/l (1.12-1.32) 09/22/22 20:53 Magnesium 2.1 mg/dl (1.7-2.4) 09/22/22 20:45 Total Bilirubin 0.5 mg/dl (0.2-1.0) 09/22/22 20:45 Direct Bilirubin 0.1 mg/dl (0-0.2) 09/22/22 20:45 AST 88 U/L (13-39) H 09/22/22 20:45 ALT 102 U/L (7-52) H 09/22/22 20:45 Alkaline Phosphatase 133 U/L (34-104) H 09/22/22 20:45 Troponin I High Sens 56.5 pg/ml (0-14) H* 09/22/22 20:45 Total Protein 6.6 gm/dl (6.0-8.3) 09/22/22 20:45 Albumin 3.8 gm/dl (3.4-5.0) 09/22/22 20:45 Procalcitonin 0.30 ng/ml (0-0.5) 09/22/22 20:45 Urine Color Yellow 09/22/22 20:45 Urine Appearance Clear (Clear) 09/22/22 20:45 Urine pH 7.5 (4.5-7.5) 09/22/22 20:45 Ur Specific [place] 1.007 (1.000-1.030) 09/22/22 20:45 Urine Protein Negative (Negative) 09/22/22 20:45 Urine Glucose (UA) Negative (Negative) 09/22/22 20:45 Urine Ketones Negative (Negative) 09/22/22 20:45 Urine Blood Trace (Negative) H 09/22/22 20:45 Urine Nitrite Negative (Negative) 09/22/22 20:45 Urine Bilirubin Negative (Negative) 09/22/22 20:45 Urine Urobilinogen Negative (Negative) 09/22/22 20:45 Ur Leukocyte Esterase Negative (Negative) 09/22/22 20:45 Urine WBC (Auto) 0 /hpf (0-5) 09/22/22 20:45 Urine RBC (Auto) 0-4 /hpf (0-4) 09/22/22 20:45 U Hyaline Cast (Auto) 0 /lpf (0-5) 09/22/22 20:45 U Epithel Cells (Auto) 5-10 /lpf (0-5) H 09/22/22 20:45 Urine Bacteria (Auto) Negative (Negative) 09/22/22 20:45 Lyme Disease IgG Ab Positive (Negative) A 09/22/22 20:45 Lyme Disease IgM Ab Positive (Negative) A 09/22/22 20:45 SARS-CoV-2 (PCR) NEGATIVE (Negative) 09/22/22 21:10 Influenza Type A (PCR) Negative (Neg) 09/22/22 21:10 Influenza Type B (PCR) Negative (Neg) 09/22/22 21:10 RSV (RT-PCR) Negative (Neg) 09/22/22 21:10 Impressions Abdomen/Pelvis CT 09/22/22 20:14 Exam(s): CT ABDOMEN + PELVIS Without Contrast EXAM: CT Abdomen and Pelvis Without Intravenous Contrast CLINICAL HISTORY: Reason for exam: sepsis w/ back pain. TECHNIQUE: Axial computed tomography images of the abdomen and pelvis without intravenous contrast. Automated exposure control was utilized for the study. A dose lowering technique was utilized adhering to the principles of ALARA. COMPARISON: No relevant prior studies available. FINDINGS: Lung bases: Clear lung bases. Heart: Small pericardial effusion. ABDOMEN: Liver: Unremarkable. Gallbladder and bile ducts: Cholelithiasis without cholecystitis or biliary dilatation. Pancreas: Unremarkable. No ductal dilation. Spleen: Unremarkable. No splenomegaly. Adrenals: Small calcification right adrenal gland, post-inflammatory or post-hemorrhagic. Left adrenal gland is normal. Kidneys and ureters: Unremarkable. No hydronephrosis. No radiopaque stones. Stomach and bowel: No bowel obstruction. Sigmoid diverticulosis without diverticulitis. PELVIS: Appendix: Normal appendix. Bladder: Unremarkable. No stones. Reproductive: Unremarkable as visualized. ABDOMEN and PELVIS: Intraperitoneal space: Trace free pelvic fluid. No free air. Bones/joints: Osteopenia. Degenerative changes in the lumbar spine. No acute fracture or dislocation. Soft tissues: Unremarkable. Vasculature: Minor atherosclerosis. No aortic aneurysm. Lymph nodes: Unremarkable. No adenopathy. IMPRESSION: No acute findings in the abdomen or pelvis. Electronically signed by: Rodríguez Jennings M.D. 09/23/22 00:00 AM Diagnostic Findings EKG as per my interpretation : Rate 85, NSR, LAD, LAFB, incomplete RBBB, no ischemia
[2022-09-23] MEDS ORDERED: ACETAMINOPHEN 325 MG TAB PO PRN (01:38)
[2022-09-23] MEDS ORDERED: PROMETHAZINE HCL 6.25 MG in SODIUM CHLORIDE 0.9% 50 ML IV PRN (01:38)
[2022-09-23] MEDS ORDERED: traMADol HCL 50 MG TABLET PO PRN (01:38)
[2022-09-23 06:03] LABS: Basophils # (auto) 0.01 K/uL (0-0.2); Basophils % (auto) 0.2 %; Eosinophils # (auto) 0.01 K/uL (0-0.50); Eosinophils % (auto) 0.2 %; Hematocrit (blood only) 33.3 % (37.0-47.0); Hemoglobin 11.6 g/dl (12.0-16.0); Immature Granulocytes # (auto) 0.01 K/uL (0.01-0.20); Immature Granulocytes % (auto) 0.2 %; Lymphocytes # (auto) 0.97 K/uL (1.2-3.4); Lymphocytes % (auto) 22.5 %; Mean Corpuscular Hemoglobin 30.3 pg (25.0-34.0); Mean Corpuscular Hgb Conc 34.8 g/dL (32.0-36.0); Mean Corpuscular Volume 86.9 fL (80.0-100.0); Monocytes # (auto) 0.42 K/uL (0.11-0.59); Monocytes % (auto) 9.7 %; Neutrophils # (auto) 2.89 K/uL (1.40-6.50); Neutrophils % (auto) 67.2 %; Platelet Count 144 K/uL (130-400); RDW Coefficient of Variation 12.8 % (11.5-14.5); RDW Standard Deviation 40.3 fL (36.4-46.3); Red Blood Count 3.83 M/uL (4.20-5.40); White Blood Count 4.31 K/ul (4.8-10.8)
[2022-09-23 06:20] LABS: Albumin Globulin Ratio 1.3 (0.9-2); Albumin Level 3.4 gm/dl (3.4-5.0); Bilirubin,Total 0.4 mg/dl (0.2-1.0); Calcium 8.3 mg/dl (8.6-10.3); Creatinine Clr Calc Pharmacy 67.6 ml/min; Est GFR (African American) 100.4 ml/min; Est GFR (Non-African American) 86.7 ml/min; Globulin 2.6 gm/dl (2.5-4.0); Potassium 3.5 mmol/L (3.5-5.1)
--- NOTE | 2022-09-23 08:45 | XRay Report ---
XR chest 1V portable HISTORY: 82 years-old Female Sepsis acute sepsis COMPARISON: CT of same day TECHNIQUE: AP view of the chest FINDINGS: Trace pleural effusions. Cardiac silhouette is upper limits of normal in size. No pneumothorax, lobar airspace consolidation or overt pulmonary edema. Degenerative changes of the shoulders and spine. IMPRESSION: 1. No airspace consolidation typical for pneumonia. 2. Trace pleural effusions. ACT 112: Negative or not required by law. The above report was generated using voice recognition software. It may contain grammatical, syntax o r spelling errors. Electronically signed by: Jamin Ely M.D. 09/23/2022 8:43 AM
[2022-09-23] MEDS ORDERED: ASPIRIN 81 MG ECTAB PO SCH (09:00)
[2022-09-23] MEDS ORDERED: DORZOLAMIDE HCL 2% OPH SOLN 10 ML BTL OPR SCH (09:00)
[2022-09-23] MEDS ORDERED: BRIMONIDINE TARTRATE 0.2% 5ML OPR SCH (09:00)
[2022-09-23] MEDS ORDERED: ENOXAPARIN INJ 40 MG/0.4 ML SYR SQ SCH (09:00)
[2022-09-23] MEDS ORDERED: SIMVASTATIN 20 MG TAB PO SCH (09:00)
--- NOTE | 2022-09-23 10:41 | Hospitalist Progress Note ---
Date of Service September 23, 2022 Assessment & Plan (1) Sepsis: Plan: Secondary to tickborne infection Abnormal LFTs secondary to above Hypertensive urgency secondary to illness Troponin elevation secondary to above hyperlipidemia, on statin Rx Medical telemetry CS, Doxycycline Follow troponin, TTE for progression DVT prophylaxis per Lovenox subcu Full code (2) Acute Lyme disease: (3) Demand ischemia: Plan: trop trended down and patient denies any symptoms of ACS. Echo was not performed and patient was requesting discharge with family present. We discussed demand ischemia and she will followup closely with her PCP for further workup as needed. No prior echo on file as she is seen in [place] regularly. (4) Transaminitis: Plan By CMS guidelines, a determination that the admission or continued stay is not medically necessary has been made by a member of the Utilization Review committee and a physician for this hospital stay. Therefore, a Code 44 will be completed and the inpatient admission will be changed to outpatient. [facility] Admission and Anticipated Discharge Date Admission Date: September 23, 2022 Subjective 82 yo F with acute Lyme disease feeling well this morning afebrile denies issues with food denies any rash but has a small quarter sized area of possible erythema migrans on her lower left back Review of Systems Review of Systems: All systems were reviewed and negative except as indicated on HPI above. Physical Exam Physical Exam: CONSTITUTIONAL: WNWD, vitals as above, generally well-appearing EYES: , normal conjunctivae, no scleral icterus ENT: external ear and nose normal, MMM NECK: trachea midline RESPIRATORY: clear to auscultation bilaterally, no crackles, rales or wheezes, normal respiratory effort CARDIOVASCULAR: regular rate and rhythm, S1 and 2 heard without murmurs, gallops or rubs, no JVD, no peripheral edema CHEST: inspection of chest was normal GASTROINTESTINAL: soft, nontender,ND no guarding MUSCULOSKELETAL: strength 5/5 throughout, head is normocephalic and atraumatic SKIN: warm and dry, small quarter sized area of erythema on her lower left back NEUROLOGIC: CN 2-12 grossly intact, no sensory deficit, normal cognition, normal speech, no tremor PSYCHIATRIC: alert cooperative and oriented to person, place and time. Euthymic mood, makes good eye contact, language grossly intact, recent and remote memory grossly intact. Results & Data Results & Data Vital Signs (Past 12 Hours) Vital Signs Temp Pulse Pulse Resp BP BP Pulse Ox 09/23/22 10:33 37.1 C 82 20 112/67 93 09/23/22 07:34 78 09/23/22 07:16 37.1 C 77 18 122/76 97 09/23/22 02:59 79 09/23/22 02:08 36.8 C 83 18 116/66 95 09/23/22 01:38 36.8 C 83 18 116/66 95 09/23/22 01:25 78 18 116/68 98 09/23/22 00:10 88 16 09/23/22 00:00 91 H 23 09/23/22 00:00 101/84 98 09/22/22 23:50 92 H 16 09/22/22 23:40 91 H 17 09/22/22 23:30 80 17 98 09/22/22 23:30 140/73 09/22/22 23:22 87 20 98 09/22/22 23:10 82 14 96 09/22/22 23:00 86 17 97 09/22/22 23:00 148/110 H 09/22/22 22:50 83 23 98 O2 Del Method 09/23/22 10:33 Room Air 09/23/22 07:34 09/23/22 07:16 Room Air 09/23/22 02:59 09/23/22 02:08 Room Air 09/23/22 01:38 Room Air 09/23/22 01:25 Room Air 09/23/22 00:10 09/23/22 00:00 09/23/22 00:00 09/22/22 23:50 09/22/22 23:40 09/22/22 23:30 09/22/22 23:30 09/22/22 23:22 09/22/22 23:10 09/22/22 23:00 09/22/22 23:00 09/22/22 22:50 Laboratory Results Short CBC 09/22/22 09/23/22 Range/Units 20:45 05:37 WBC 4.49 L 4.31 L (4.8-10.8) K/ul Hgb 12.2 11.6 L (12.0-16.0) g/dl Hct 34.5 L 33.3 L (37.0-47.0) % Plt Count 151 144 (130-400) K/uL BMP 09/22/22 09/23/22 20:45 05:37 Sodium 133 L 135 L Potassium 3.5 3.5 Chloride 104 105 Carbon Dioxide 22 22 BUN 8 7 Creatinine 0.60 0.54 L Glucose 105 H 124 H Calcium 8.8 8.3 L Liver Function 09/22/22 09/23/22 Range/Units 20:45 05:37 Total Bilirubin 0.5 0.4 (0.2-1.0) mg/dl Direct Bilirubin 0.1 (0-0.2) mg/dl AST 88 H 69 H (13-39) U/L ALT 102 H 93 H (7-52) U/L Alkaline Phosphatase 133 H 118 H (34-104) U/L Albumin 3.8 3.4 (3.4-5.0) gm/dl Urine 09/22/22 Range/Units 20:45 Urine Color Yellow Urine Appearance Clear (Clear) Urine pH 7.5 (4.5-7.5) Ur Specific [place] 1.007 (1.000-1.030) Urine Protein Negative (Negative) Urine Glucose (UA) Negative (Negative) Diagnostic Findings Abdomen/Pelvis CT 09/22/22 20:14 Exam(s): CT ABDOMEN + PELVIS Without Contrast EXAM: CT Abdomen and Pelvis Without Intravenous Contrast CLINICAL HISTORY: Reason for exam: sepsis w/ back pain. TECHNIQUE: Axial computed tomography images of the abdomen and pelvis without intravenous contrast. Automated exposure control was utilized for the study. A dose lowering technique was utilized adhering to the principles of ALARA. COMPARISON: No relevant prior studies available. FINDINGS: Lung bases: Clear lung bases. Heart: Small pericardial effusion. ABDOMEN: Liver: Unremarkable. Gallbladder and bile ducts: Cholelithiasis without cholecystitis or biliary dilatation. Pancreas: Unremarkable. No ductal dilation. Spleen: Unremarkable. No splenomegaly. Adrenals: Small calcification right adrenal gland, post-inflammatory or post-hemorrhagic. Left adrenal gland is normal. Kidneys and ureters: Unremarkable. No hydronephrosis. No radiopaque stones. Stomach and bowel: No bowel obstruction. Sigmoid diverticulosis without diverticulitis. PELVIS: Appendix: Normal appendix. Bladder: Unremarkable. No stones. Reproductive: Unremarkable as visualized. ABDOMEN and PELVIS: Intraperitoneal space: Trace free pelvic fluid. No free air. Bones/joints: Osteopenia. Degenerative changes in the lumbar spine. No acute fracture or dislocation. Soft tissues: Unremarkable. Vasculature: Minor atherosclerosis. No aortic aneurysm. Lymph nodes: Unremarkable. No adenopathy. IMPRESSION: No acute findings in the abdomen or pelvis. Electronically signed by: Rodríguez Jennings M.D. 09/23/22 00:00 AM Chest X-Ray 09/22/22 20:14 XR chest 1V portable HISTORY: 82 years-old Female Sepsis acute sepsis COMPARISON: CT of same day TECHNIQUE: AP view of the chest FINDINGS: Trace pleural effusions. Cardiac silhouette is upper limits of normal in size. No pneumothorax, lobar airspace consolidation or overt pulmonary edema. Degenerative changes of the shoulders and spine. IMPRESSION: 1. No airspace consolidation typical for pneumonia. 2. Trace pleural effusions. ACT 112: Negative or not required by law. The above report was generated using voice recognition software. It may contain grammatical, syntax or spelling errors. Electronically signed by: Jamin Ely M.D. 09/23/2022 8:43 AM Medications Administered Current Inpatient Medications Acetaminophen (Acetaminophen 325 Mg Tab) 325 mg PO Q6H PRN PRN Reason: Mild Pain (Scale 1, 2, 3) Stop: 10/23/22 01:37 Last Admin: 09/23/22 08:22 Dose: 325 mg Aspirin (Aspirin 81 Mg Ectab) 81 mg PO DAILY [facility] Stop: 10/23/22 08:59 Last Admin: 09/23/22 07:50 Dose: 81 mg Bimatoprost (Bimatoprost 0.01% Op Soln 2.5 Ml Btl) 1 drops OPR HS [facility] Stop: 10/23/22 20:59 Brimonidine Tartrate (Brimonidine Tartrate 0.2% 5ml) 1 drops OPR BID [facility] Stop: 10/23/22 08:59 Last Admin: 09/23/22 07:51 Dose: 1 drops Dorzolamide HCl (Dorzolamide Hcl 2% Oph Soln 10 Ml Btl) 1 drops OPR BID [facility] Stop: 10/23/22 08:59 Last Admin: 09/23/22 07:51 Dose: 1 drops Doxycycline Hyclate (Doxycycline Hyclate 100 Mg Cap) 100 mg PO BID [facility] Stop: 10/03/22 20:59 Enoxaparin Sodium (Enoxaparin Inj 40 Mg/0.4 Ml Syr) 40 mg SQ QAM [facility] Stop: 10/23/22 08:59 Last Admin: 09/23/22 07:48 Dose: Not Given Sodium Chloride (Nss 1000ml) 1,000 mls @ 75 mls/hr IV .[id number] STA Stop: 09/23/22 12:17 Last Admin: 09/22/22 23:25 Dose: 75 mls/hr Promethazine HCl 6.25 mg/ (Sodium Chloride) 50.25 mls @ 201 mls/hr IV Q6H PRN PRN Reason: Nausea And Vomiting Stop: 10/23/22 01:37 Simvastatin (Simvastatin 20 Mg Tab) 20 mg PO DAILY [facility] Stop: 10/23/22 08:59 Last Admin: 09/23/22 07:50 Dose: 20 mg Tramadol HCl (Tramadol Hcl 50 Mg Tablet) 25 mg PO Q4H PRN PRN Reason: Pain Stop: 10/23/22 01:37
--- NOTE | 2022-09-23 14:08 | Communication Note ---
Date of Service: September 23, 2022 By CMS guidelines, a determination that the admission or continued stay is not medically necessary has been made by a member of the UR committee and a physic pauline for this hospital stay, therefore a Code 44 will be completed and the Inpatient admission will be changed to outpatient.
--- NOTE | 2022-09-23 14:18 | Discharge Summary ---
Discharge Summary Date of Service September 23, 2022 Notes For Next Care Provider Elevated transaminitis secondary to Lyme, consider repeat hepatic panel as outpatient Elevated troponin in the hospital which trended down-highly sensitive troponin of 60.7 followed by 46.4. She denied any symptoms of ACS. Consider outpatient echocardiogram or further work-up as needed. Medication Changes From Visit Doxycycline 100 mg p.o. twice daily x10 days Admission HPI Per Admitting Provider History obtained from patient and records. Medical history significant for hyperlipidemia, glaucoma. 3 days history of fever, chills, generalized weakness. Upset stomach without diarrhea symptoms. No chest pain, no SOB, no cough symptoms. Possible tick exposure due to residence although patient has no recollection of recent tick bites. Patient seen at PCPs office. Patient started on Bactrim for possible UTI. No improvement despite first doses of antibiotic. Patient brought to ER by . IV ceftriaxone administered at the ER for possible tickborne infection. Initial SBP noted to be 160s. Medical History as above Surgical History : Carpal tunnel surgery Family History : Heart disease Personal/Social history : Non-smoker, no EtOH intake, lives with Principal Dx & Hospital Course #1 = Principal Diagnosis (1) Sepsis: (2) Acute Lyme disease: (3) Demand ischemia: (4) Transaminitis: Plan Patient is a 82-year-old female who presented after high fevers for several days found to have Lyme disease. She was admitted and diagnosed with sepsis. She was resuscitated in the ER with IV fluids and was given ceftriaxone and started on doxycycline. Lactate was normal. The following day she was clinically back to baseline and requesting to be discharged in the hospital. She was tolerating p.o. and hemodynamically stable and afebrile. Physical exam did reveal a small quarter size rash on her left lower back area which could be consistent with erythema migrans. Physical exam was otherwise unremarkable and patient appears younger than stated age. Family is with her and verbalized understanding of the assessment and plan. We discussed demand ischemia and that her troponin elevation was likely a result of that in the setting of sepsis. She also was found to have mildly elevated LFTs consistent with Lyme disease. AST was 69, ALT 93 and alk phos 118. At time of discharge she was hemodynamically stable and afebrile and tolerating p.o. She was sent home in stable condition with close primary care follow-up recommended. By CMS guidelines, a determination that the admission or continued stay is not medically necessary has been made by a member of the Utilization Review committee and a physician for this hospital stay. Therefore, a Code 44 will be completed and the inpatient admission will be changed to outpatient. sms Discharge Exam CONSTITUTIONAL: WNWD, vitals as above, generally well-appearing EYES: , normal conjunctivae, no scleral icterus ENT: external ear and nose normal, MMM NECK: trachea midline RESPIRATORY: clear to auscultation bilaterally, no crackles, rales or wheezes, normal respiratory effort CARDIOVASCULAR: regular rate and rhythm, S1 and 2 heard without murmurs, gallops or rubs, no JVD, no peripheral edema CHEST: inspection of chest was normal GASTROINTESTINAL: soft, nontender,ND no guarding MUSCULOSKELETAL: strength 5/5 throughout, head is normocephalic and atraumatic SKIN: warm and dry, small quarter sized area of erythema on her lower left back NEUROLOGIC: CN 2-12 grossly intact, no sensory deficit, normal cognition, normal speech, no tremor PSYCHIATRIC: alert cooperative and oriented to person, place and time. Euthymic mood, makes good eye contact, language grossly intact, recent and remote memory grossly intact. Updated Medication List Medication Instructions Recorded Confirmed Type albuterol sulfate 90 mcg/actuation 2 puff inhalation Q6H PRN 09/22/22 09/22/22 History aerosol inhaler Shortness Of Breath Or Wheezing aspirin 81 mg tablet,delayed 81 mg PO DAILY 09/22/22 09/22/22 History release bimatoprost 0.01 % eye drops 1 drp OPR DAILY 09/22/22 09/22/22 History ([place]) brimonidine 0.2 % eye drops 1 drp OPR BID 09/22/22 09/22/22 History calcium carbonate 600 mg-vitamin 1 tab PO BID 09/22/22 09/22/22 History D3 10 mcg (400 unit) tablet (Calcium 600 + D(3)) dorzolamide 2 % eye drops 1 drp OPR DIRECTED 09/22/22 09/22/22 History simvastatin 20 mg tablet 20 mg PO DAILY 09/22/22 09/22/22 History doxycycline hyclate 100 mg capsule 100 mg PO BID #20 caps 09/23/22 Rx Hospital Stay Data Consultations 09/22/22 23:03 ED Decision to Admit Stat Diagnostic Imagining Performed 09/22/22 20:14 CT abd pelvis wo con Stat Pending Results Patient Have Any Pending Studies at Discharge: Yes Discharge Instructions Given to Patient (Per Discharging Provider) Please take all medications as instructed on discharge as below. You have been diagnosed with acute Lyme disease. Please continue the doxycycline for total of 10 days. It is recommended that you follow-up with your primary care doctor within a week of hospitalization to ensure you are improving since returning home. Please avoid taking doxycycline with any supplements such as calcium or any acid reducing medications like Protonix or Pepcid. There are several labs that are pending at time of discharge that are projected to result after you return home. Please have Dr. Walton request these records from [facility] upon follow-up. These labs include Anaplasma DNA, Babesia DNA. You were found to have an elevated troponin likely related to demand on your heart from your recent illness. There was no echocardiogram (heart ultrasound) performed as the troponin improved and you have no signs of acute coronary syndrome. It was a pleasure taking care of you! Please call if you have any questions or problems. You can reach a [facility] hospitalist on duty at [facility] 24 hours a day by calling [phone]. Take care of yourself. Kamryn Hays, [facility] Hospitalist Total Time Total Time Spent Total Time Spent (In Minutes): 60
[2022-09-23] MEDS ORDERED: DOXYCYCLINE HYCLATE 100 MG CAP PO SCH (21:00)
[2022-09-23] MEDS ORDERED: BIMATOPROST 0.01% OP SOLN 2.5 ML BTL OPR SCH (21:00)
--- NOTE | 2022-09-24 21:53 | Electrocardiogram Report ---
Test Reason : Blood Pressure : / mmHG Vent. Rate : 084 BPM Atrial Rate : 084 BPM P-R Int : 154 ms QRS Dur : 100 ms QT Int : 372 ms P-R-T Axes : 059 -68 059 degrees QTc Int : 439 ms Normal sinus rhythm with sinus arrhythmia Incomplete right bundle branch block Left anterior fascicular block Abnormal ECG No previous ECGs available Confirmed by Washington Reynolds ([id number]) on 09/24/2022 9:52:37 PM Referred By: Deborah Barclay Confirmed By:Washington Reynolds
[2022-09-26 02:42] LABS: 18KDIGG Band REACTIVE; 23KDIGG Band NON-REACTIVE; 23KDIGM Band REACTIVE; 28KDIGG Band NON-REACTIVE; 30KDIGG Band NON-REACTIVE; 39KDIGG Band NON-REACTIVE; 39KDIGM Band NON-REACTIVE; 41KDIGG Band REACTIVE; 41KDIGM Band NON-REACTIVE; 45KDIGG Band NON-REACTIVE; 58KDIGG Band NON-REACTIVE; 66KDIGG Band NON-REACTIVE; 93KDIGG Band NON-REACTIVE; Lyme Antibodies, WB IgG NEGATIVE (NEGATIVE); Lyme Antibodies, WB IgM NEGATIVE (NEGATIVE)
[2022-09-28 17:07] LABS: Ehrlichia chaff DNA Bld Negative (Negative)
== END 2022-09-23 14:25 | disposition home or self-care (01) | DRG 872 ==
LOC: ED 19:48 → 2N 09-23 00:09 → INTOOBSV 09-23 00:09 → 2N 09-23 01:25